=== PATIENT | female | born 1965 | race Two or more races ===

== ENCOUNTER 2022-09-11 12:12 | Inpatient (IN) | payer OTHER ==
[~2022-09-11] VITALS: Ht 297.2 cm; Wt 63.5 kg
[2022-09-11] MEDS ORDERED: ZYPREXA10 MG PO (12:21)
[2022-09-11] MEDS ORDERED: WELLBUTRIN SR150 MG PO (12:22)
--- NOTE | 2022-09-11 12:24 | NUR ---
SE RECIBE PTE ALERTA Y ORIENTADA X3 LA MISMA PRESENTA DISTENCION EN ABDOMEN Y MOLESTIA EN EL MISMO POR CANCER DE OVARIOS. EL DR. CHRISTIANSON ESCOBAL LA ENVIO A MATT DE EMERGENCIAS PARA QUE DR. PEPPER EBLLE LA EVALUE.
--- NOTE | 2022-09-11 14:06 | NUR ---
PACIENTE EVALUADA POR DR. JEROME QUIEN ORDENA TRATAMIENTO. RN PATEL ORIENTA PACIENTE SOBRE TRATAMIENTO QUIEN REFIERE ENTENDER. SE ADMINISTRAN MEDICAMENTOS IVON ORDEN MEDICA, SE ZULEMA MUESTRAS DE LABORATORIO BAJO MEDIDAS ASEPTICAS. SE HACE ENTREGA DE CONTRASTE PO.
== END 2022-09-13 15:29 | disposition home or self-care (01) | DRG 737 ==
LOC: ER 12:12 → SEC-K 18:42 → O/R 09-12 18:12 → SURH 09-12 19:48
PROVIDERS: ADMIT Internal Medicine; ATTEND Internal Medicine
PROC: 0UT74ZZ Resection of Bilateral Fallopian Tubes, Percutaneous Endoscopic Approach (ICD-10-PCS; principal; 2022-09-11)
PROC: 0UT24ZZ Resection of Bilateral Ovaries, Percutaneous Endoscopic Approach (ICD-10-PCS; 2022-09-11)
PROC: 0DBW4ZZ Excision of Peritoneum, Percutaneous Endoscopic Approach (ICD-10-PCS; 2022-09-11)
PROC: BW21ZZZ Computerized Tomography (CT Scan) of Abdomen and Pelvis (ICD-10-PCS; 2022-09-11)
DX: C56.3 Malignant neoplasm of bilateral ovaries (principal); C77.5 Secondary and unspecified malignant neoplasm of intrapelvic lymph nodes; C79.89 Secondary malignant neoplasm of other specified sites; C79.82 Secondary malignant neoplasm of genital organs; C79.11 Secondary malignant neoplasm of bladder; Z20.822 Contact with and (suspected) exposure to COVID-19; F31.9 Bipolar disorder, unspecified

== ENCOUNTER 2022-10-04 12:25 | Inpatient (IN) | payer OTHER ==
[~2022-10-04] VITALS: Ht 160 cm; Wt 62.1 kg
[~2022-10-04 12:25] MED LIST: WELLBUTRIN SR150 MG PO; ZYPREXA10 MG PO
[2022-10-04] MEDS ORDERED: PERCOCET 10-321 EACH (13:05)
[2022-10-07] MEDS ORDERED: FAMOTIDINE20 MG (13:22)
[2022-10-07] MEDS ORDERED: LIDOCAINE-PRILO30 GM (13:22)
[2022-10-07] MEDS ORDERED: PANTOPRAZOLE SO40 MG (13:23)
[2022-10-07] MEDS ORDERED: GAS RELIEF180 MG (13:23)
== END 2022-10-07 22:05 | disposition home or self-care (01) | DRG 948 ==
LOC: ER 12:25 → MEDJ 17:04
PROVIDERS: ADMIT Internal Medicine; ATTEND Internal Medicine
PROC: BW21ZZZ Computerized Tomography (CT Scan) of Abdomen and Pelvis (ICD-10-PCS; 2022-10-04)
PROC: 0W9G3ZZ Drainage of Peritoneal Cavity, Percutaneous Approach (ICD-10-PCS; principal; 2022-10-07)
DX: R18.8 Other ascites (principal)

== ENCOUNTER 2022-10-27 13:15 | Emergency (ER) | payer OTHER ==
[~2022-10-27] VITALS: Ht 175.3 cm; Wt 59.0 kg
[~2022-10-27 13:15] MED LIST changes: +FAMOTIDINE20 MG; +GAS RELIEF180 MG; +LIDOCAINE-PRILO30 GM; +PANTOPRAZOLE SO40 MG; +PERCOCET 10-321 EACH
== END 2022-10-27 19:41 | disposition home or self-care (01) ==
LOC: ER 13:15
DX: R14.0 Abdominal distension (gaseous) (principal); C56.9 Malignant neoplasm of unspecified ovary; R18.8 Other ascites